=== PATIENT | male | born 1950 | race Caucasian/White ===

== ENCOUNTER 2017-01-05 06:27 | Day surgery (SDC) | payer OTHER ==
[~2017-01-05] VITALS: Ht 180.3 cm; Wt 96.4 kg
[~2017-01-05 06:27] MED LIST: 0.9% SODIUM CHLORIDE 10 ML VIAL IVP ONE; ALPR0.255 PO; AMIT10TA6 PO; BUME1TAB30 PO; CITA20TA9 PO; CLON.1 PO; EPHEDrine SULFATE 50 MG/ML VIAL IM ONE; FentaNYL CITRATE-PF 250 MCG/5 ML VIAL IVP ONE; HYDR-3971 PO; MIDAZOLAM HCL 2 MG/2 ML VIAL IVP ONE; PROPOFOL 1% 20 ML VIAL IVP ONE; SIMV-260 PO; SODIUM CHLORIDE 0.9% 1,000 ML IV ONE; SUCCINYLCHOLINE CHLORIDE 20 MG/ML 10 ML VIAL IVP ONE
[2017-01-05] MEDS ORDERED: SODIUM CHLORIDE 0.9% 1,000 ML IV ONE (06:40)
[2017-01-05 07:25] LABS: CALCIUM, TOTAL 8.8 mg/dL (8.8-10.5); CREATININE 1.64 mg/dL (0.60-1.30); POTASSIUM 3.9 mmol/L (3.5-5.1)
[2017-01-05 07:36] LABS: ALBUMIN 3.9 g/dL (3.4-5.0); BILIRUBIN,TOTAL 0.4 mg/dL (0.1-1.0); TOTAL PROTEIN, SERUM 7.2 g/dL (6.4-8.2)
[2017-01-05] MEDS ORDERED: GADOBUTROL 1 MMOL/ML 10 ML VIAL IVP ONE (07:51)
[2017-01-05] MEDS ORDERED: HYDROmorphone 2 MG/ML SYRINGE IVP PRN (08:45)
[2017-01-05] MEDS ORDERED: MEPERIDINE-PF 25 MG/ML SYRINGE IVP PRN (08:45)
[2017-01-05] MEDS ORDERED: OXYGEN THERAPY IH SCH (08:45)
[2017-01-05] MEDS ORDERED: FentaNYL CITRATE-PF 100 MCG/2 ML VIAL IVP PRN (08:45)
[2017-01-05] MEDS ORDERED: HYDROmorphone 2 MG/ML SYRINGE ONE (10:14)
== END 2017-01-05 11:10 | disposition home or self-care (01) ==
LOC: SDS 06:27 → EDSTATUS 08:00 → SDS 11:10
PROVIDERS: ATTEND Orthopaedic Surgery
DX: M48.06 Spinal stenosis, lumbar region (principal); I10 Essential (primary) hypertension; J45.909 Unspecified asthma, uncomplicated; M54.5 Low back pain; N28.9 Disorder of kidney and ureter, unspecified; F41.0 Panic disorder [episodic paroxysmal anxiety]; Z98.890 Other specified postprocedural states
CPT/HCPCS: 36415; 72158; 80053; A9585; J0330; J1170; J2250; J2704; J3010; J3490; J7030